=== PATIENT | female | born 1970 | race African-American/Black ===

== ENCOUNTER 2017-02-12 16:27 | Emergency (ER) | payer OTHER ==
[~2017-02-12] VITALS: Ht 162.6 cm; Wt 111.1 kg
[2017-02-12 16:33] VITALS: BP 156/80
[2017-02-12] MEDS ORDERED: METHIMAZOLE10 M1 PO (17:25)
[2017-02-12] MEDS ORDERED: IRON325 M3 PO (17:26)
[2017-02-12] MEDS ORDERED: VITAMIN C500 M8 PO (17:26)
[2017-02-12] MEDS ORDERED: MULTI-DAY VITA1 EACH PO (17:26)
[2017-02-12] MEDS ORDERED: VITAMIN D2000 UNIT PO (17:26)
[2017-02-12] MEDS ORDERED: VITAMIN B-121000 MC3 PO (17:27)
[2017-02-12] MEDS ORDERED: ZITHROMAX250 M2 PO (17:39)
[2017-02-12] MEDS ORDERED: IBUPROFEN600 M1 PO (17:39)
[2017-02-12] MEDS ORDERED: TESSALON PERLE100 M1 PO (17:39)
[2017-02-12] MEDS ORDERED: PREDNISONE20 M1 PO (17:39)
--- NOTE | 2017-02-12 17:41 | ED INFLUENZA/URI COMPLAINT ---
History of Present Illness General Chief Complaint: Sore Throat, Dental Pain Stated Complaint: YATES/BODY ACHES X 2DAY SORE THROAT Source: patient, family, old records Exam Limitations: no limitations Vital Signs & Intake/Output Vital Signs & Intake/Output Vital Signs Date Time Temp Pulse Resp B/P B/P Pulse O2 O2 Flow FiO2 Mean Ox Delivery Rate 02/12 1633 97.8 75 25 156/80 99 Room Air Allergies Coded Allergies: Penicillins (UNKNOWN 02/12/17) Reconcile Medications Ascorbic Acid (Vitamin C) (Unknown Strength) TABLET (Unknown Dose) PO DAILY SUPPLEMENT (Reported) Cholecalciferol (Vitamin D3) (Vitamin D) (Unknown Strength) CAPSULE (Unknown Dose) PO DAILY SUPPLEMENT (Reported) Cyanocobalamin (Vitamin B-12) (Unknown Strength) TABLET (Unknown Dose) PO DAILY SUPPLEMENT (Reported) Ferrous Sulfate (IRON) (Unknown Strength) TABLET (Unknown Dose) PO DAILY SUPPLEMENT (Reported) Methimazole 10 MG TABLET 1 TAB PO BID THYROID (Reported) Multivitamin (Multi-Day Vitamins) 1 EACH TABLET 1 TAB PO DAILY SUPPLEMENT ( Reported) Triage Note: TRIAGE: PT TO ER C/C GENERALIZED BODY PAIN, SCRATCHY SORE THROAT, SLIGHTLY PRODUCTIVE COUGH WITH YELLOW PHLEGM REPORTED. DENIES FEVERS. HAS HAD POST NASAL DRIP. Triage Nurses Notes Reviewed? yes Onset: 4 days Duration: day(s):, constant, continues in ED Timing: recent history Severity: moderate Prior Episodes/Possible Cause: illness exposure No Modifying Factors: none Associated Symptoms: cough, facial pain, muscle aches, nasal congestion, nasal drainage, sinus infection, sore throat LMP (ages 10-50): unknown : No Patient currently breastfeeds: No HPI: 4 days prior to admission patient complains of sore throat and developed nasal congestion frontal headache productive cough muscle aches chills. She denies fever nausea vomiting diarrhea abdominal pain chest pain shortness of breath dysuria rash bleeding . Past History Travel History Traveled to [place] past 21 day No Medical History Any Pertinent Medical History? 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 No Review of Systems Review of Systems Constitutional: Reports: see HPI, chills, malaise. EENTM: Reports: see HPI, nasal congestion, nasal pain, throat pain. Respiratory: Reports: see HPI, cough, sputum production. Cardiovascular: Reports: no symptoms. GI: Reports: no symptoms. Genitourinary: Reports: no symptoms. Musculoskeletal: Reports: see HPI, muscle pain. Skin: Reports: no symptoms. Neurological/Psychological: Reports: see HPI, headache. Hematologic/Endocrine: Reports: no symptoms. Immunologic/Allergic: Reports: no symptoms. All Other Systems: Reviewed and Negative Physical Exam Physical Exam General Appearance: well developed/nourished, alert, awake, anxious Head: atraumatic, normal appearance, tenderness (frontal maxillary sinus) Eyes: Bilateral: normal appearance, PERRL, EOMI. Ears, Nose, Throat: moist mucous membrane, nasal congestion, pharyngeal erythema Neck: normal inspection, supple, full range of motion, trachea midline, lymphadenopathy (R), lymphadenopathy (L) Respiratory: normal breath sounds, chest non-tender, no respiratory distress, quiet respiration, lungs clear Cardiovascular: regular rate/rhythm, normal peripheral pulses, norml femoral pulses equa Peripheral Pulses: 4+ carotid (R), 4+ carotid (L) Gastrointestinal: normal bowel sounds, soft, non-tender, no organomegaly Back: normal inspection, normal range of motion, no vertebral tenderness Extremities: normal inspection, normal capillary refill, normal range of motion, no edema Neurologic/Psych: no motor/sensory deficits, awake, alert, oriented x 3, normal gait, normal mood/affect, 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 Skin: intact, normal color, warm/dry Lymphatic: adenopathy Core Measures Severe Sepsis Present: No Septic Shock Present: No Progress Differential Diagnosis: influenza, pharyngitis, sinusitis Plan of Care: Current Medications Sig/Wallace Start time Last Medication Dose Stop Time Status Admin Azithromycin 500 MG ONCE ONE 02/12 1745 UNVr (Zithromax) 02/12 1746 Guaifenesin/ 10 ML ONCE ONE 02/12 1745 UNVr Dextromethorphan 02/12 1746 (Robitussin Dm) Ibuprofen 600 MG ONCE ONE 02/12 1745 UNVr (Motrin) 02/12 1746 Oxymetazoline HCl 2 SPRAY ONCE ONE 02/12 1745 UNVr (Afrin) 02/12 1746 Prednisone 60 MG ONCE ONE 02/12 1745 UNVr 02/12 1746 Initial ED EKG: none Departure Departure Time of Disposition: 1736 Disposition: HOME OR SELF CARE Condition: Stable Clinical Impression Primary Impression: Sinusitis, acute Qualifiers: Sinusitis location: unspecified location Recurrence: not specified as recurrent Qualified Code: J01.90 - Acute sinusitis, unspecified Secondary Impressions: Bronchitis Pharyngitis Qualifiers: Pharyngitis/tonsillitis etiology: unspecified etiology Qualified Code: J02.9 - Acute pharyngitis, unspecified Referrals: HIRAL ROTHMAN,DEMARCO Kraus (PCP/Family) Departure Forms: Customer Survey General Discharge Information Prescriptions: Current Visit Scripts Azithromycin (Zithromax) 1 TAB PO DAILY #4 TAB 2 the first day followed by 1 for days 2-5 Benzonatate (Tessalon Perle) 1 CAP PO TID PRN cough #21 CAP Prednisone 1 TAB PO BID #10 TAB Ibuprofen 1 TAB PO [id number] PRN pain #50 TAB with food
== END 2017-02-12 18:23 ==
LOC: ERH 16:27
DX: J32.9 Chronic sinusitis, unspecified (principal); J40 Bronchitis, not specified as acute or chronic; J02.9 Acute pharyngitis, unspecified